=== PATIENT | male | born 1950 | race Caucasian/White ===

== ENCOUNTER → 2019-02-05 | Outpatient (CLI) | payer MEDICARE | END | disposition home or self-care (01) | LOC: LABPAT 10:08 | PROVIDERS: ATTEND Orthopaedic Surgery | DX: Z01.812 Encounter for preprocedural laboratory examination (principal) | CPT/HCPCS: 87070 ==

== ENCOUNTER 2019-02-25 11:20 | Day surgery (SDC) | payer MEDICARE ==
[2019-02-18 15:01] VITALS: BMI 38.4
--- NOTE | 2019-02-24 08:54 | HP ---
HISTORY AND PHYSICAL CHIEF COMPLAINT: Right knee pain. HISTORY OF PRESENT ILLNESS: The patient is a 68-year-old retired gentleman who presents with progressive right knee pain secondary to osteoarthrosis, worsening over the past 6 months. He did have a recent fall. He notes swelling, stiffness, and pain that limits his activities. He has tried medications and previous injections. PAST MEDICAL HISTORY: Significant for type 2 diabetes, hepatitis C, hypertension, and arthritis. PAST SURGICAL HISTORY: Significant for abdominoplasty, bilateral shoulder surgery, right shoulder hemiarthroplasty, left shoulder reverse arthroplasty and left total knee arthroplasty. CURRENT MEDICATIONS: 1. Aspirin. 2. Atorvastatin. 3. Humalog. 4. Losartan. 5. Metformin. ALLERGIES: He denies drug allergies. FAMILY HISTORY: Family history is unknown. SOCIAL HISTORY: Significant for social alcohol use. REVIEW OF SYSTEMS: Sixteen point review of systems otherwise reviewed and is noncontributory. PHYSICAL EXAMINATION: On examination, the patient is approximately 5 feet, 7 inches, 260 pounds of endomorphic habitus. HEENT exam is nonfocal. Neck is supple. He has painless passive motion of the right hip. Straight leg raise is negative. Active motion right knee -12 to 90 degrees of flexion. He has a large effusion. He is tender about the medial joint line. Collaterals are stable, Altagracia's negative, Glenny's is equivocal. He has genu varum alignment. His distal neurovascular exam appears to be intact in the right lower extremity. X-rays to include weightbearing notch, lateral and Merchant views of the right knee obtained in the office show severe medial and patellofemoral compartment. IMPRESSION: 1. Right knee severe medial and patellofemoral compartment osteoarthrosis. 2. History of diabetes. 3. Body mass index over 40. RECOMMENDATIONS: I talked to the patient at length regarding his condition and treatment options. At this point, he is quite symptomatic and opts to proceed with surgery. We will plan to proceed with right total knee arthroplasty. Risks and benefits were discussed at length in layman's terms. We will institute DVT prophylaxis postoperatively. MMODL / IJN: [id number] /
[~2019-02-25 11:20] MED LIST: ACETAMINOPHEN TAB 500 MG TAB PO ONE; DEXAMETHASONE SOD PHOSPHATE 10 MG/ML 1 ML VIAL IV ONE; HYDROmorphone 0.5 MG/0.5 ML SYRINGE IVP PRN; LIDOCAINE 1% 20 ML VIAL (10MG/ML) FOR IV START INTRADERMA PRN; MELOXICAM 7.5 MG TAB PO ONE; MIDAZOLAM 2 MG/2 ML VIAL IV PRN; ONDANSETRON 4 MG/2 ML VIAL IVP ONE; SCOPOLAMINE 1.5MG/72HR PATCH TRANSDERM ONE; TRANEXAMIC ACID 1,000 MG in SODIUM CHLORIDE 0.9% 100 ML IVPB ONE; ceFAZolin IN SWFI 2 GM/20 ML SYRINGE IVP ONE
[2019-02-25] MEDS: LACTATED RINGERS 1,000 ML IV SCH (11:48)
[2019-02-25 12:01] LABS: Glucose,Whole Blood 140 mg/dL (75-99)
[2019-02-25] MEDS ORDERED: ROPIVACAINE 246.25 MG, EPINEPHrine 0.5 MG, KETOROLAC 30 MG, WATER FOR INJECTION,STERILE... MISCELLANE ONE ×4 (12:11)
[2019-02-25] MEDS ORDERED: MIDAZOLAM (PF) 2 MG/2 ML VIAL IV ONE (12:19)
[2019-02-25] MEDS ORDERED: ROPIVACAINE 1,100 MG, SODIUM CHLORIDE 0.9% 500 ML 330 ML MISCELLANE PRN ×2 (12:41)
--- NOTE | 2019-02-25 12:43 | P.ONQ ---
Anesthesiology Proc Note - PNB - Peripheral Nerve Block Performed Right Adductor Canal Infusion Time Out Performed: Yes Procedure Start Time: 12:21 Procedure Stop Time: 12:35 Indication: Acute Post-Operative Pain, Requested by physician Sedation Type: Sedate with meaningful contact maintained Preparation: Sterile Dressing Position: Supine Catheter: Indwelling Needle Types: On-Q Needle Size: 100mm (4") Needle Gauge: 21 Technique: Ultrasound (ropi .5% 20cc) Blood Aspirated: No Pain Paresthesia on Injection Noted: No Resistance on Injection: Normal Events: Uneventful and Well Tolerated
[2019-02-25] MEDS ORDERED: diphenhydrAMINE 50 MG/ML 1 ML VIAL ONE (13:13)
[2019-02-25] MEDS ORDERED: TRANEXAMIC ACID 1,000 MG/10 ML VIAL ONE (13:13)
[2019-02-25] MEDS ORDERED: fentaNYL (PF) 50 MCG/ML 2 ML AMP ONE (13:13)
[2019-02-25] MEDS ORDERED: MIDAZOLAM 2 MG/2 ML VIAL ONE (13:13)
[2019-02-25] MEDS ORDERED: SODIUM CHLORIDE 0.9% 100 ML BAG ONE (13:13)
[2019-02-25] MEDS ORDERED: ceFAZolin 3,000 MG in SODIUM CHLORIDE 0.9% IRRIGATIO 3,000 ML IRRIGATION ONE (13:43)
[2019-02-25] MEDS ORDERED: LACTATED RINGERS 1,000 ML IV ONE (14:18)
[2019-02-25] MEDS ORDERED: HYDROmorphone 0.5 MG/0.5 ML SYRINGE IVP PRN (14:58)
[2019-02-25] MEDS ORDERED: NALOXONE 0.4 MG/ML 1 ML VIAL IV PRN (14:58)
[2019-02-25] MEDS ORDERED: traMADol 50 MG TAB PO PRN (14:58)
[2019-02-25] MEDS ORDERED: MAGNESIUM HYDROXIDE 2,400 MG/10 ML CUP PO PRN (14:58)
[2019-02-25] MEDS ORDERED: ONDANSETRON 4 MG/2 ML VIAL IVP PRN (14:58)
[2019-02-25] MEDS ORDERED: HYDROcodone/APAP 7.5-325MG 1 EACH TAB PO PRN ×2 (14:58→15:00)
[2019-02-25] MEDS ORDERED: ACETAMINOPHEN TAB 325 MG TAB PO PRN (14:58)
--- NOTE | 2019-02-25 15:24 | P.OP ---
Date of Procedure: 02/25/19 Preoperative Diagnosis: Right knee severe tricompartmental osteoarthrosis Postoperative Diagnosis: Same Procedure(s) Performed: Right total knee arthroplastycementedcruciate retaining Implants: Depuy Attune size 7 cemented femoral component, size 7 cemented tibial component, 9 mm articular surface, 38 mm cemented patellar component. Anesthesia: regional, local, spinal Surgeon: Bimal Jovel Material Stress Tester #1: Maikol Han Estimated Blood Loss (ml): 50 Pathology: other (Bone fragments) Condition: stable Disposition: PACU Indications for Procedure: The patient's a 68-year-old male who presents with progressive right knee pain secondary osteoarthrosis despite conservative measures. A discussion of the risks and benefits of operative intervention versus continued conservative measures was made with patient. He opted to proceed with surgery. Specific risks of surgery to include infection, neurovascular injury, fracture, component loosening, component failure need for subsequent procedures was discussed. Informed consent was obtained. Operative Findings: As below Description of Procedure: The patient was brought to the operating room, and after induction of spinal anesthesia the right lower extremity was prepped and draped in a normal fashion. The tourniquet was inflated to 270 mmHg. A longitudinal incision extending 3 finger breaths above the superior pole of the patella extending to the medial aspect the tibial tubercle was then made. The skin and subcutaneous tissues were divided sharply. Electrocautery was used for hemostasis. A medial parapatellar arthrotomy was then performed. The medial soft tissues to include the superficial and deep portions of the medial collateral ligament as well as the medial hamstring tendons were elevated subperiosteally. The proximal medial tibia osteophytes were carefully removed. The patella was everted. The knee was flexed. A portion of the retropatellar fat pad was excised sharply. The anterior cruciate ligament was sacrificed. A starting hole was made in the distal femur 1 cm anterior to the posterior cruciate origin. An intramedullary femoral guide was gently inserted planning on 5 valgus distal cut with 9 mm distal resection. The cutting block was pinned in place. The distal cut was then made. The posterior referencing sizing guide was utilized. 3 of external rotation was built into the system and verified off the trans- epicondylar axis and the posterior condyles. I felt size 7 was most appropriate. The cutting block was pinned in place. The anterior, posterior, and chamfer cuts were then made. The bone fragments were removed. A sulcus cut was then made with the appropriate guide. The trial size 7 femoral component was then placed and was fully seated. There was good anterior to posterior and medial to lateral fit. The distal peg holes were then drilled. The trial component was then removed. Attention was then paid towards preparing the proximal tibia. An extra medullary guide was utilized in line with the tibial shaft and second metatarsal distally. A 7 posterior slope was planned. I planned on 2 mm resection from the medial compartment. The cutting block was pinned in place. The proximal tibial cut was then made. The bone was removed in one fragment. The remnants of the medial and lateral menisci were excised the capsule junction with electrocautery. The tibia sized most appropriately at size 7. The posterior osteophytes off the distal femur were carefully removed with a curved osteotome. The trial tibial and femoral components were placed along with a 9 millimeters articular surface. I was able to obtain full flexion and extension with good stability with varus and valgus stress. After several flexion and extension cycles, the tibial rotation was marked with electrocautery in line with the medial one third of the tibial tubercle. Attention was then paid towards preparing the patella. A patella reamer was utilized taking this down to 14 mm of bone stock. A good flush cut was made. The patella sized most appropriately at 38 millimeters. The peg holes were then drilled. The trial component was placed. The knee was taken through a range of motion. I had good patellofemoral tracking with no hands technique. The trial components were then removed. The tibia was prepared in the appropriate rotation with appropriate drill and keel punch. The flexion and extension gaps were checked and felt to be symmetric. The posterior soft tissues were injected with ropivacaine. The bony surfaces were prepared with pulsatile lavage and dried. The deep tibial component was then cemented in place and was fully seated. Excess cement was removed. The femoral component was cemented in place and was fully seated. Again excess cement was removed. The trial 9 millimeters surface was then inserted in the knee was put in full extension. The patella component was cemented in place. After the cement had sufficiently hardened, the knee was again taken through a range of motion. Again there was good stability in flexion and extension with varus and valgus stress. The trial articular surface was then removed. The final articular surface was placed and was impacted. Care was taken to avoid any soft tissue interposition. Pulsatile lavage was again utilized. The tourniquet was deflated with approximately 70 minutes total tourniquet time. There was minimal drainage therefore a deep drain was not placed. The medial parapatellar arthrotomy was then closed with #2 Ethibond suture. The subcutaneous tissues were reapproximated interrupted 2-0 Vicryl sutures. The skin was reapproximated with 3-0 subarticular strata fix suture. Skin tape and adhesive was applied. A sterile dressing was applied. The patient was then awoken from sedation and transferred to recovery room in good condition. Blood loss was estimated at 50 milliliters. No complications were incurred. Sponge and needle counts were correct at the end the case. Jim VELAZQUEZ assisted during the major components this case to include exposure, bone resection, and implantation.
[2019-02-25 15:53] LABS: Glucose,Whole Blood 192 mg/dL (75-99)
--- NOTE | 2019-02-25 16:18 | XR ---
EXAMINATION TYPE: XR knee limited RT DATE OF EXAM: 02/25/2019 COMPARISON: NONE TECHNIQUE: Two views submitted HISTORY: Post op FINDINGS: There is a prosthetic knee in near anatomic alignment. There is soft tissue edema and emphysema. Va scular calcification seen. IMPRESSION: 1. Postoperative change. Appears in near-anatomic alignment
[2019-02-25 17:11] VITALS: RESP 18
[2019-02-25] MEDS ORDERED: SENNOSIDES-DOCUSATE SODIUM 1 EACH TAB PO SCH (21:00)
[2019-02-25 21:47] LABS: Glucose,Whole Blood 354 mg/dL (75-99)
[2019-02-25] MEDS: ceFAZolin IN SWFI 2 GM/20 ML SYRINGE IVP SCH (21:53)
[2019-02-25] MEDS ORDERED: INSULIN DETEMIR (LEVEMIR) 100 UNIT/ML SYR SQ SCH (22:30)
[2019-02-25] MEDS: INSULIN ASPART (NovoLOG) 100 UNIT/ML VIAL SQ SCH (23:07)
[2019-02-26] MEDS: LACTATED RINGERS 1,000 ML IV SCH (04:26)
[2019-02-26] MEDS: ceFAZolin IN SWFI 2 GM/20 ML SYRINGE IVP SCH (04:27)
--- NOTE | 2019-02-26 05:47 | P.PN ---
Progress Note - Text Progress Note Date: 02/26/19 POD 1 From TKR. Doing well, onQ pump in place, site clean and dry. No erythema. Pain controlled. No weakness noted. Normal sensation and strength. Little sore posteriorly but able to ambulate. patient to be d/c home today. Instructions given to them regarding removal.
[2019-02-26 07:51] LABS: Glucose,Whole Blood 177 mg/dL (75-99)
[2019-02-26 08:11] LABS: Basophils % (A) 0 %; Eosinophils % (A) 0 %; HCT 40.2 % (39.0-53.0); HGB 13.4 gm/dL (13.0-17.5); Lymphocytes % (A) 13 %; MCHC 33.3 g/dL (31.0-37.0); Mean Platelet Volume 6.4; Monocytes % (A) 7 %; Neutrophils # (A) 12.1 k/uL (1.3-7.7); Neutrophils % (A) 79 %; Platelet Count 314 k/uL (150-450); RBC 4.47 m/uL (4.30-5.90); RDW 13.2 % (11.5-15.5); WBC 15.3 k/uL (3.8-10.6)
[2019-02-26] MEDS: INSULIN ASPART (NovoLOG) 100 UNIT/ML VIAL SQ SCH ×3 (08:39→12:54)
[2019-02-26 08:47] VITALS: BP 122/75; PULSE 94; TEMP 97.9
[2019-02-26] MEDS ORDERED: ATORVASTATIN 40 MG TAB PO SCH (09:00)
[2019-02-26] MEDS ORDERED: CHOLECALCIFEROL 1,000 UNIT TAB PO SCH (09:00)
[2019-02-26] MEDS ORDERED: RIVAROXABAN 10 MG TAB PO SCH (09:00)
[2019-02-26] MEDS ORDERED: metFORMIN 500 MG TAB PO SCH (09:00)
[2019-02-26] MEDS ORDERED: LOSARTAN-HCTZ 50-12.5 MG 1 EACH TAB PO SCH (09:00)
[2019-02-26] MEDS ORDERED: ASPIRIN 81 MG PO SCH (09:00)
[2019-02-26 11:34] LABS: Glucose,Whole Blood 249 mg/dL (75-99)
--- NOTE | 2019-02-26 11:56 | P.PN ---
Subjective Progress Note Date: 02/26/19 Principal diagnosis: Status post right total knee arthroplasty Patient evaluated at bedside, he is doing very well. He is ambulating well with therapy. His pain is well-controlled. Denies any shortness of breath or chest pain Objective - Vital Signs Vital signs: Vital Signs Temp 97.9 F 02/26/19 07:28 Pulse 94 02/26/19 07:28 Resp 18 02/26/19 08:28 BP 122/75 02/26/19 07:28 Pulse Ox 97 02/26/19 07:28 Intake & Output 02/25/19 02/26/19 02/26/19 18:59 06:59 18:59 Intake Total 1401 900 Output Total 50 Balance 1351 900 Weight 117.934 kg Intake: IV 1401 Intake, IV Titration 750 Amount Lactated Ringers 1,000 ml 750 @ 50 mls/hr IV .Q20H GANGA Rx#:[id number] Oral 150 Output: Estimated Blood Loss 50 Other: Voiding Method Toilet Toilet # Voids 1 - Exam Right lower extremity: Incision is clean, dry, and intact. The exofin fusion tape is in good condition . There is minimal soft tissue swelling and ecchymosis surrounding the medial and lateral aspects of the incision. Calf is soft, no tenderness with palpation. Plantar flexion, dorsiflexion, EHL, FHL are intact. Sensory exam to light touch throughout the extremity is intact, dorsal pedis pulses 2+. - Labs CBC & Chem 7: 02/26/19 07:15 Labs: Abnormal Lab Results - Last 24 Hours (Table) 02/25/19 02/25/19 02/25/19 Range/Units 11:47 15:49 21:45 WBC (3.8-10.6) k/uL Neutrophils # (1.3-7.7) k/uL POC Glucose (mg/dL) 140 H 192 H 354 H (75-99) mg/dL 02/26/19 02/26/19 02/26/19 Range/Units 07:15 07:29 11:24 WBC 15.3 H (3.8-10.6) k/uL Neutrophils # 12.1 H (1.3-7.7) k/uL POC Glucose (mg/dL) 177 H 249 H (75-99) mg/dL Assessment and Plan Plan: Assessment: Postoperative day #1 status post right total knee arthroplasty Plan: Pain control, plan for discharge on oral medication GI and DVT prophylaxis, Eliquis 2.5mg bid Wound care instructions discussed Home physical therapy and nursing Medical recommendations Discharge planning: Patient will be discharged home today Time with Patient: Less than 30
--- NOTE | 2019-02-26 11:59 | P.DS ---
Providers Date of admission: 02/25/2019 Expected date of discharge: 02/26/19 Attending physician: Bimal Jovel Consults: 02/25/19 15:00 Consult Physician Routine Consulting Provider: Alan Scott Reason/Comments: Medical Management Do you want consulting provider notified?: Yes Primary care physician: Alan Scott Hospital Course: Date of admission: 02/25/2019 Date of discharge: 02/26/2019 Admission diagnosis: Status post right total knee arthroplasty Discharge diagnosis: Same Attending physician: Dr. Jovel Surgical procedures: Right total knee arthroplasty Brief history: Patient is a 68-year-old male with a history of progressive primary right knee osteoarthritis. At this point patient has failed conservative treatment measures and has opted to proceed with a elective right total knee arthroplasty. Hospital course: Details of patient's surgery can be found in operative report. Patient tolerated the procedure well and was subsequently transported to orthopedic floor. Patient's orthopeidc and medical care was provided daily. Patient had daily laboratory tests performed for evaluation of overall blood counts. Patient had daily physical therapy to include strengthening range of motion as well as education with walker ambulation. Patient had daily CPM usage as part of their physical therapy program. Patient was treated with Xarelto for their postoperative DVT prophylaxis during their inpatient stay. Patient was noted to have a relatively uneventful postoperative course. Patient reported satisfactory pain control with oral pain medications by postoperative day 0. Patient showed satisfactory progress with physical therapy. Patient moved steadily through the program and had no difficulty meeting the goals by postoper ative day 1. Given patient's otherwise satisfactory course and having met physical therapy goals, plan is to discharge patient home on postoperative day 1. Discharge condition/disposition: Patient will be discharged home in stable condition. Discharge medications: Instructions are given on resumption of patient's normal daily medications per primary care recommendation, in addition patient will be prescribed [place] 7.5 mg/325 mg, Colace 100 mg, Eliquis 2.5mg. Discharge instructions: 1. Wound care and infection precautions, keep incision dry and covered while showering, no lotions, creams, moisturizers. No soaking, tubs, pools, hottubs. Do not scrub over the incision. 2. Weight-bear as tolerated with walker / cane until follow-up. 3. Ice and elevate when necessary. Do not exceed 20 minutes per hour with ice pack. 4. Utilize compression sleeve until seen at first follow up appointment. 5. Visiting nursing care. 6. Home physical therapy including home CPM. 7. Pain meds and anticoagulants per prescription. 8. Pain medication has potential to cause constipation. Increase oral fluid and fiber intake. Contact primary care provider if you have not had a bowel movement within 48 hours after discharge 9. No anti-inflammatory medication until discussed at first post operative visit, this including Motrin, Aleve, Mobic, Diclofenac 10. Follow up in office at 2 weeks postop with Jim Han PA-C 11. Follow up with your primary care doctor 7-10 days after discharge. 12. Contact [facility] with any questions, . Procedures: Right total knee arthroplasty Patient Condition at Discharge: Good Plan - Discharge Summary Discharge Rx Participant: Yes New Discharge Prescriptions: New Docusate [Colace] 100 mg PO DAILY #30 capsule Apixaban [Eliquis] 2.5 mg PO BID #60 tab HYDROcodone/APAP 7.5-325MG [Austin 7.5] 1 - 2 each PO Q6HR PRN #40 tab PRN Reason: Pain No Action Losartan-Hctz 50-12.5 mg [Hyzaar 50-12.5] 1 each PO DAILY Aspirin [Adult Low Dose Aspirin EC] 81 mg PO DAILY Insulin Lispro [humaLOG Kwikpen] 17 unit SQ AC-TID Atorvastatin [Lipitor] 40 mg PO Q48H metFORMIN HCL [Glucophage] 1,000 mg PO BID Insulin Detemir [Levemir Flextouch] 43 unit SQ HS Quinol Co-Q 10 200 mg PO DAILY Cholecalciferol (Vitamin D3) [Vitamin D3] 2,000 unit PO DAILY Discharge Medication List Aspirin [Adult Low Dose Aspirin EC] 81 mg PO DAILY 02/18/19 [History] Atorvastatin [Lipitor] 40 mg PO Q48H 02/18/19 [History] Cholecalciferol (Vitamin D3) [Vitamin D3] 2,000 unit PO DAILY 02/18/19 [History] Insulin Detemir [Levemir Flextouch] 43 unit SQ HS 02/18/19 [History] Insulin Lispro [humaLOG Kwikpen] 17 unit SQ AC-TID 02/18/19 [History] Losartan-Hctz 50-12.5 mg [Hyzaar 50-12.5] 1 each PO DAILY 02/18/19 [History] Quinol Co-Q 10 200 mg PO DAILY 02/18/19 [History] metFORMIN HCL [Glucophage] 1,000 mg PO BID 02/18/19 [History] Apixaban [Eliquis] 2.5 mg PO BID #60 tab 02/26/19 [Rx] Docusate [Colace] 100 mg PO DAILY #30 capsule 02/26/19 [Rx] HYDROcodone/APAP 7.5-325MG [Austin 7.5] 1 - 2 each PO Q6HR PRN #40 tab 02/26/19 [Rx] Follow up Appointment(s)/Referral(s): [facility], [NON-STAFF] - Maikol Han PAC [PHYSICIAN APPLICATION INTEGRATION ARCHITECT] - 2 Weeks Activity/Diet/Wound Care/Special Instructions: Orthopedic Discharge Instructions: 1. Wound care and infection precautions, keep incision dry and covered while showering, no lotions, creams, moisturizers. No soaking, pools, hot tubs. Do not scrub over incision. 2. Weight-bear as tolerated with walker / cane until follow-up. 3. Ice and elevate when necessary. Do not exceed 20 minutes per hour with ice pack. 4. Utilize compression sleeve until seen at first follow up appointment. 5. Pain meds and anticoagulants per prescription. 6. Pain medication has potential to cause constipation. Increase oral fluid and fiber intake. Contact primary care provider if you have not had a bowel movement within 48 hours after discharge. 7. No anti-inflammatory medication until discussed at first post operative visit, this including Motrin, Aleve, Mobic, Diclofenac. 8. Follow up in office at 2 weeks postop with Jim Han PA-C 9. Follow up with your primary care doctor 7-10 days after discharge. 10. Contact [facility] with any questions, . Discharge Disposition: HOME WITH HOME HEALTH SERVICES
--- NOTE | 2019-02-27 09:38 | CONS ---
CONSULTATION REASON FOR CONSULTATION: Advice regarding diabetes mellitus and other medical issues requested by Dr. Jovel. HISTORY OF PRESENT ILLNESS: This 68-year-old gentleman with a past medical history of diabetes, hypertension, hyperlipidemia being followed by Dr. Scott in the outpatient setting was admitted after right total knee joint arthroplasty is being closely monitored. There is no history of chest pain. No history of palpitations. No history of headache, loss of consciousness, nausea, vomiting, fever, rigors, chills at this time. Blood sugars have been controlled between 140 and 177 with of 354. PAST MEDICAL HISTORY: History of diabetes, hypertension, hyperlipidemia, history of DJD. MEDICATIONS: Medications prior to admission home medications are: 1. Lipitor 40 mg q.48. 2. Vitamin D3, 2000 daily. 3. Losartan hydrochlorothiazide 1 p.o. daily. 4. Ecotrin 81 mg. 5. Humalog KwikPen 17 units subcu a.c. t.i.d. 6. Glucophage 1000 mg b.i.d. 7. Levemir 43 units subcu q.h.s. 8. [place] 7.5 mg q.6 p.r.n. 9. Colace 100 mg daily. 10.Eliquis 2.5 mg . ALLERGIES: Allergies are none. FAMILY HISTORY: History of aneurysm behind the eyes. SOCIAL HISTORY: No history of smoking. Occasional alcohol intake. REVIEW OF SYSTEMS: ENT: No diminished hearing or diminished vision. CARDIOVASCULAR SYSTEM: No angina or palpitations. RESPIRATORY SYSTEM: No cough. GI: No nausea. : No dysuria. NERVOUS SYSTEM: No numbness or weakness. ALLERGY/IMMUNOLOGY: No asthma. MUSCULOSKELETAL: As mentioned earlier. HEMATOLOGY/ONCOLOGY: No history of anemia. ENDOCRINE: Diabetes mellitus. CONSTITUTIONAL: As mentioned earlier. DERMATOLOGY: Negative. RHEUMATOLOGY: Negative. PSYCHIATRY: As mentioned earlier. PHYSICAL EXAMINATION: The patient is alert and oriented x3. Pulse 94, blood pressure 122/75, respiration 18, temperature 97.9, pulse ox 97% on room air. HEENT: Conjunctivae normal. Oral mucosa moist. NECK: No jugular venous distention. No carotid bruit. No lymph node enlargement. CARDIOVASCULAR: S1, S2 muffled. No S3, S4. RESPIRATORY: Breath sounds diminished at the bases. No rhonchi. No crackles. ABDOMEN: Soft, nontender. LEGS: Status post knee arthroplasty. NERVOUS SYSTEM: Higher functions as mentioned earlier. Moves all 4 limbs. No focal motor or sensory . LYMPHATICS: No lymphadenopathy of the neck, axillae or groin. SKIN: No ulcer, rash or bleeding. JOINTS: No active deforming arthropathy. LABS: WBC 15.3, hemoglobin 13.4. ASSESSMENT: 1. Status post right total knee joint arthroplasty. 2. Diabetes mellitus type 2. 3. Hypertension. 4. Hyperlipidemia. 5. History of degenerative joint disease. RECOMMENDATIONS AND DISCUSSION: This 68-year-old gentleman presented with multiple medical issues. At this time I recommend to continue current medications, continues symptomatic treatment. Resume the home medications. Monitor Accu-Cheks closely. Incentive spirometry. DVT prophylaxis. The blood sugar appears to be controlled at this time. I would recommend the patient closely follow up with primary physician in the outpatient setting and keep checking the Accu-Cheks. Otherwise rest of the recommendations per Orthopedic Surgery. Further recommendations to follow. MMODL / IJN: [id number] / MTDLaura
== END 2019-02-26 13:48 | disposition home health service (06) ==
LOC: OR 11:20 → 4SSUR 15:00 → OR 02-26 13:48
PROVIDERS: ATTEND Orthopaedic Surgery
DX: M17.11 Unilateral primary osteoarthritis, right knee (principal); W19.XXXA Unspecified fall, initial encounter; M25.761 Osteophyte, right knee; E11.9 Type 2 diabetes mellitus without complications; E78.5 Hyperlipidemia, unspecified; I10 Essential (primary) hypertension; E78.00 Pure hypercholesterolemia, unspecified; E66.01 Morbid (severe) obesity due to excess calories; Z68.38 Body mass index [BMI] 38.0-38.9, adult; I25.10 Atherosclerotic heart disease of native coronary artery without angina pectoris; Z96.652 Presence of left artificial knee joint; Z96.612 Presence of left artificial shoulder joint; Z96.611 Presence of right artificial shoulder joint; Z86.19 Personal history of other infectious and parasitic diseases; Z98.84 Bariatric surgery status; Z79.82 Long term (current) use of aspirin; Z79.4 Long term (current) use of insulin; Z79.899 Other long term (current) drug therapy
CPT/HCPCS: 27447; 97161; 64448; 85025; 88300; 73560; C1713; C1776; C1772; J2250 ×2; J0171; J1200; J1100; J2405; J0690 ×3; J3010; J1885; J2795

== ENCOUNTER → 2021-05-18 | Outpatient (CLI) | payer MEDICARE ==
[2021-05-18 18:53] LABS: Hemoglobin A1C 8.1 % (4.0-6.0)
[2021-05-18 21:34] LABS: African American GFR (CKD) 99.2 (60.0-200.0); Albumin 4.5 g/dL (3.80-4.90); Albumin/Globulin Ratio 1.96 (1.60-3.17); Anion Gap 11.9 mmol/L (4.00-12.00); BUN/Creat Ratio 11.11 Ratio (12.00-20.00); Calcium 9.6 mg/dL (8.7-10.3); Carbon Dioxide 26.1 mmol/L (21.6-31.8); Chol/HDL Ratio 3.26; Globulin 2.3 g/dL (1.6-3.3); Non-African American GFR(CKD) 85.6 (60.0-200.0); Potassium 4.2 mmol/L (3.5-5.5); Total Bilirubin 0.6 mg/dL (0.3-1.2); Total Protein 6.8 g/dL (6.2-8.2)
[2021-05-19 09:22] LABS: Microalbumin Creatinine Ratio <30 mg/g Creat (0-30); Urine Creatinine 77.5 mg/dL
== END | disposition home or self-care (01) ==
LOC: LABWHC1 09:23
PROVIDERS: ATTEND Internal Medicine Endocrinology, Diabetes & Metabolism
DX: E11.65 Type 2 diabetes mellitus with hyperglycemia (principal)
CPT/HCPCS: 36415; 80053; 80061; 82043; 82570; 83036; 84443

== ENCOUNTER → 2021-08-31 | Outpatient (CLI) | payer MEDICARE ==
[2021-08-31 16:02] LABS: ALT 31 U/L (10-49); AST 23 U/L (14-35); Albumin 4.6 g/dL (3.8-4.9); Albumin/Globulin Ratio 2.11 (1.60-3.17); Alkaline Phosphatase 77 U/L (41-126); BUN/Creat Ratio 10.93 Ratio (12.00-20.00); Blood Urea Nitrogen 11.7 mg/dL (9.0-27.0); Calcium 9.6 mg/dL (8.7-10.3); Carbon Dioxide 24.7 mmol/L (20.0-27.5); Chloride 100 mmol/L (96-109); Chol/HDL Ratio 3.59 Ratio; Globulin 2.2 g/dL (1.6-3.3); Glucose 102 mg/dL (70-110); LDL Cholesterol,Calculated 80.7 mg/dL (0.0-131.0); Potassium 4.2 mmol/L (3.5-5.5); Sodium 142 mmol/L (135-145); Total Protein 6.7 g/dL (6.2-8.2)
== END | disposition home or self-care (01) ==
LOC: LABWHC1 08:53
PROVIDERS: ATTEND Internal Medicine Endocrinology, Diabetes & Metabolism
DX: E11.65 Type 2 diabetes mellitus with hyperglycemia (principal)
CPT/HCPCS: 36415; 80053; 80061; 82043; 82570; 83036; 84443

== ENCOUNTER → 2022-04-08 | Outpatient (CLI) | payer MEDICARE ==
[2022-04-08 11:43] LABS: Microalbumin Creatinine Ratio <30 mg/g Creat (0-30)
[2022-04-08 11:55] LABS: ALT 23 U/L (10-49); AST 18 U/L (14-35); African American GFR (CKD) 86.8 (60.0-200.0); Albumin 4.6 g/dL (3.8-4.9); Alkaline Phosphatase 77 U/L (41-126); Blood Urea Nitrogen 12.7 mg/dL (9.0-27.0); Calcium 9.9 mg/dL (8.7-10.3); Carbon Dioxide 26.5 mmol/L (20.0-27.5); Chloride 100 mmol/L (96-109); Chol/HDL Ratio 3.21 Ratio; Globulin 2.3 g/dL (1.6-3.3); Glucose 96 mg/dL (70-110); LDL Cholesterol,Calculated 75.8 mg/dL (0.0-131.0); Non-African American GFR(CKD) 74.9 (60.0-200.0); Potassium 4.5 mmol/L (3.5-5.5); Sodium 140 mmol/L (135-145); Total Protein 6.9 g/dL (6.2-8.2)
== END | disposition home or self-care (01) ==
LOC: LABWHC1 08:26
PROVIDERS: ATTEND Internal Medicine Endocrinology, Diabetes & Metabolism
DX: E11.65 Type 2 diabetes mellitus with hyperglycemia (principal)
CPT/HCPCS: 36415; 80053; 80061; 82043; 82570; 83036; 84443

== ENCOUNTER → 2023-06-18 | Outpatient (CLI) | payer MEDICARE ==
[2023-06-18 18:37] LABS: ALT 24 U/L (10-49); AST 21 U/L (14-35); Albumin 4.6 d/dL (3.8-4.9); Albumin/Globulin Ratio 2.09 Ratio (1.60-3.17); Alkaline Phosphatase 69 U/L (41-126); Blood Urea Nitrogen 13.6 mg/dL (9.0-27.0); Calcium 9.7 mg/dL (8.7-10.3); Carbon Dioxide 28.2 mmol/L (21.6-31.8); Chloride 99 mmol/L (96-109); Chol/HDL Ratio 2.72 Ratio; Globulin 2.2 d/dL (1.6-3.3); Glucose 163 mg/dL (70-110); LDL Cholesterol,Calculated 57.4 mg/dL (0.0-131.0); Potassium 4.5 mmol/L (3.5-5.5); Sodium 140 mmol/L (135-145); Total Bilirubin 0.5 mg/dL (0.3-1.2); Total Protein 6.8 d/dL (6.2-8.2)
[2023-06-18 20:20] LABS: Microalbumin Creatinine Ratio <14 mg/g Cr (0-30); Urine Creatinine 86.8 mg/dL (39.0-259.0)
== END | disposition home or self-care (01) ==
LOC: LABWHC1 08:10
PROVIDERS: ATTEND Internal Medicine Endocrinology, Diabetes & Metabolism
DX: E11.65 Type 2 diabetes mellitus with hyperglycemia (principal)
CPT/HCPCS: 36415; 80053; 80061; 82043; 82570; 83036; 84443

== ENCOUNTER → 2024-01-17 | Outpatient (CLI) | payer MEDICARE ==
[2024-01-17 15:58] LABS: ALT 24 U/L (10-49); AST 18 U/L (14-35); Albumin 4.4 g/dL (3.8-4.9); Alkaline Phosphatase 57 U/L (41-126); BUN/Creat Ratio 17.12 Ratio (12.00-20.00); Blood Urea Nitrogen 13.7 mg/dL (9.0-27.0); Calcium 9.5 mg/dL (8.7-10.3); Carbon Dioxide 25.5 mmol/L (21.6-31.8); Chloride 99 mmol/L (96-109); Chol/HDL Ratio 2.89 Ratio; Globulin 2.2 g/dL (1.6-3.3); Glucose 122 mg/dL (70-110); Potassium 4.4 mmol/L (3.5-5.5); Sodium 139 mmol/L (135-145); Total Bilirubin 0.5 mg/dL (0.3-1.2); Total Protein 6.6 g/dL (6.2-8.2)
[2024-01-17 20:46] LABS: Microalbumin Creatinine Ratio <20 mg/g Cr (0-30); Urine Creatinine 58.7 mg/dL (39.0-259.0)
== END | disposition home or self-care (01) ==
LOC: LABWHC1 08:40
PROVIDERS: ATTEND Internal Medicine Endocrinology, Diabetes & Metabolism
DX: E11.65 Type 2 diabetes mellitus with hyperglycemia (principal)
CPT/HCPCS: 36415; 80053; 80061; 82043; 82570; 83036; 84443